=== PATIENT | female | born 1995 | race Hispanic/Latino ===

== ENCOUNTER 2017-03-07 03:22 | Emergency (ER) | payer OTHER ==
[2017-03-07 03:46] VITALS: BP 130/81; PULSE 88; RESP 16; TEMP 98; O2SAT 99
--- NOTE | 2017-03-07 04:12 | ED PDOC ---
HPI: Psych/Substance Abuse Time Seen by Provider: 03/07/17 03:24 Chief Complaint (Nursing): Alcohol Ingestion History Per: Patient Additional Complaint(s): Pt. found by EMS walking outside and admitted to drinking alcohol. Offers no complaints at this time. Requesting to go home. Past Medical History Reviewed: Historical Data, Nursing Documentation, Vital Signs Vital Signs: Last Vital Signs Temp 98 F 03/07/17 03:25 Pulse 88 03/07/17 03:25 Resp 16 03/07/17 03:25 BP 130/81 03/07/17 03:25 Pulse Ox 99 03/07/17 03:25 - Family History Family History: States: No Known Family Hx - Allergies Allergies/Adverse Reactions: Allergies Allergy/AdvReac Type Severity Reaction Status Date / Time No Known Allergies Allergy Verified 03/07/17 03:24 Review of Systems ROS Statement: Except As Marked, All Systems Reviewed And Found Negative Physical Exam - Reviewed Nursing Documentation Reviewed: Yes Vital Signs Reviewed: Yes - Physical Exam Appears: Positive for: Well, Non-toxic, No Acute Distress Head Exam: Positive for: ATRAUMATIC, NORMAL INSPECTION, NORMOCEPHALIC Skin: Positive for: Normal Color, Warm. Negative for: Rash Eye Exam: Positive for: EOMI, Normal appearance, PERRL ENT: Positive for: Normal ENT Inspection Neck: Positive for: Normal, Painless ROM Cardiovascular/Chest: Positive for: Regular Rate, Rhythm Respiratory: Positive for: CNT, Normal Breath Sounds Gastrointestinal/Abdominal: Positive for: Normal Exam, Soft. Negative for: Tenderness Back: Positive for: Normal Inspection Extremity: Positive for: Normal ROM Neurologic/Psych: Positive for: Alert, Oriented, Gait (steady; unassisted), Other (no slurred speech; AOB). Negative for: Aphasia, Facial Droop - ECG O2 Sat by Pulse Oximetry: 99 Disposition - Clinical Impression Clinical Impression: Alcohol intoxication - Patient ED Disposition Is Patient to be Admitted: No - Disposition Disposition Time: 04:00 Condition: STABLE Instructions: Alcohol Intoxication (ED) Forms: [facility] (Ukrainian) Print Language: [place]APORE[place]
== END 2017-03-07 04:00 | disposition home or self-care (01) ==
LOC: H.ER 03:22
DX: F10.129 Alcohol abuse with intoxication, unspecified (principal)